=== PATIENT | male | born 1980 | race Caucasian/White ===

== ENCOUNTER 2018-06-16 19:40 | Emergency (ER) | payer OTHER ==
[2018-06-16] MEDS ORDERED: ONDANSETRON 4 MG/2 ML VIAL IVP STA (19:53)
[2018-06-16] MEDS ORDERED: LORazepam 2 MG/ML INJ IV STA (19:53)
[2018-06-16] MEDS ORDERED: SODIUM CHLORIDE 0.9% 2,000 ML IV STA (19:53)
[2018-06-16] MEDS ORDERED: diphenhydrAMINE 50 MG/ML 1 ML VIAL IVP STA (19:53)
[2018-06-16 19:55] VITALS: RESP 18
[2018-06-16] MEDS: cloNIDine HCL 0.1 MG TAB PO STA (20:12)
--- NOTE | 2018-06-16 20:25 | ED ---
Nausea/Vomiting/Diarrhea HPI - General Chief complaint: Recheck/Abnormal Lab/Rx Stated complaint: Withdrawal Time Seen by Provider: 06/16/18 19:45 Source: EMS, RN notes reviewed, old records reviewed Mode of arrival: EMS Limitations: physical limitation - History of Present Illness MD complaint: nausea, vomiting, abdominal pain, other (diaphoresis, tremors) -: hour(s) Associated Abdominal Pain: Yes Location: diffuse Radiation: none Severity: severe Severity scale (1-10): 9 Quality: constant Consistency: constant Worsens with: none Context: other (history of drug abuse and withdrawal) Associated Symptoms: myalgias, loss of appetite, nausea/vomiting, weakness - Related Data Home Medications Medication Instructions Recorded Confirmed Acetaminophen [Tylenol 8 Hour] 650 mg PO Q6H PRN 06/16/18 06/16/18 Buprenorphine HCl/Naloxone HCl 1 film SL DAILY 06/16/18 06/16/18 [Buprenorp-Nalox 4-1 mg Sl Film] Calcium 1000mg/ Magnesium 500mg 1 tab PO TID PRN 06/16/18 06/16/18 Divalproex [Depakote] 1,000 mg PO HS 06/16/18 06/16/18 Divalproex [Depakote] 500 mg PO DAILY@0600 06/16/18 06/16/18 Folic Acid 1 mg PO DAILY 06/16/18 06/16/18 Gabapentin [Neurontin] 300 mg PO TID 06/16/18 06/16/18 Hyoscyamine Sulfate [Levsin] 0.125 mg PO QID PRN 06/16/18 06/16/18 Ibuprofen [Motrin] 600 mg PO Q6HR PRN 06/16/18 06/16/18 LORazepam [Ativan] 1 - 2 mg PO Q4H PRN 06/16/18 06/16/18 Lactulose 20 gm PO DAILY 06/16/18 06/16/18 Loperamide [Imodium] 4 mg PO ONCE PRN 06/16/18 06/16/18 Ondansetron HCl [Zofran] 8 mg PO Q6H PRN 06/16/18 06/16/18 Ondansetron [Zofran] 4 mg IM Q6H PRN 06/16/18 06/16/18 PHENobarbital 97.2 mg PO DAILY 06/16/18 06/16/18 Thiamine [Vitamin B-1] 100 mg PO TID@0600,1530,2200 06/16/18 06/16/18 Trimethobenzamide HCl [Tigan] 300 mg PO Q6H PRN 06/16/18 06/16/18 cloNIDine HCL [Catapres] 0.1 mg PO Q4H PRN 06/16/18 06/16/18 levOCARNitine [Levocarnitine] 990 mg PO BID 06/16/18 06/16/18 traZODone HCL 50 - 150 mg PO HS 06/16/18 06/16/18 traZODone HCL 100 mg PO HS 06/16/18 06/16/18 Allergies Allergy/AdvReac Type Severity Reaction Status Date / Time No Known Allergies Allergy Verified 06/16/18 20:25 Review of Systems ROS Statement: Those systems with pertinent positive or pertinent negative responses have been documented in the HPI. ROS Other: All systems not noted in ROS Statement are negative. Past Medical History Past Medical History: Seizure Disorder History of Any Multi-Drug Resistant Organisms: None Reported Past Surgical History: Orthopedic Surgery Additional Past Surgical History / Comment(s): shoulders and back surgery Past Psychological History: Anxiety, Bipolar, PTSD Smoking Status: Current every day smoker Past Alcohol Use History: None Reported Past Drug Use History: Heroin, Opiates General Exam Limitations: physical limitation General appearance: alert, anxious, in distress Head exam: Present: atraumatic, normocephalic, normal inspection Eye exam: Present: normal appearance, PERRL, EOMI. Absent: scleral icterus, conjunctival injection, periorbital swelling ENT exam: Present: normal exam, mucous membranes moist Neck exam: Present: normal inspection. Absent: tenderness, meningismus, lymphadenopathy Respiratory exam: Present: normal lung sounds bilaterally. Absent: respiratory distress, wheezes, rales, rhonchi, stridor Cardiovascular Exam: Present: normal rhythm, tachycardia, normal heart sounds. Absent: systolic murmur, diastolic murmur, rubs, gallop, clicks GI/Abdominal exam: Present: soft, normal bowel sounds. Absent: distended, tenderness, guarding, rebound, rigid Extremities exam: Present: normal inspection, full ROM, normal capillary refill. Absent: tenderness, pedal edema, joint swelling, calf tenderness Back exam: Present: normal inspection Neurological exam: Present: alert, oriented X3, CN II-XII intact Psychiatric exam: Present: normal affect, normal mood Skin exam: Present: warm, dry, intact, normal color. Absent: rash Course Vital Signs 06/16/18 06/16/18 06/16/18 19:49 20:09 21:43 Temperature 97.6 F Pulse Rate 104 H 78 50 L Respiratory 18 18 18 Rate Blood Pressure 159/112 127/90 130/84 O2 Sat by Pulse 99 99 99 Oximetry - Reevaluation(s) Reevaluation #1: 06/16/18 21:46 Medical record is reviewed Reevaluation #2: 06/16/18 21:47 Patient does have resolution, improvement of symptoms Medical Decision Making - Medical Decision Making 37 male the ER for evaluation polysubstance withdrawal. Methadone withdrawal. Patient will continue Catapres patch Return to [place], - Lab Data Result diagrams: 06/16/18 20:20 06/16/18 20:20 Lab Results 06/16/18 06/16/18 06/16/18 Range/Units 20:02 20:20 20:20 WBC 7.0 (3.8-10.6) k/uL RBC 4.47 (4.30-5.90) m/uL Hgb 13.7 (13.0-17.5) gm/dL Hct 40.8 (39.0-53.0) % MCV 91.3 (80.0-100.0) fL MCH 30.7 (25.0-35.0) pg MCHC 33.6 (31.0-37.0) g/dL RDW 15.1 (11.5-15.5) % Plt Count 227 (150-450) k/uL Neutrophils % 50 % Lymphocytes % 36 % Monocytes % 9 % Eosinophils % 1 % Basophils % 1 % Neutrophils # 3.5 (1.3-7.7) k/uL Lymphocytes # 2.5 (1.0-4.8) k/uL Monocytes # 0.6 (0-1.0) k/uL Eosinophils # 0.1 (0-0.7) k/uL Basophils # 0.1 (0-0.2) k/uL Sodium 143 (137-145) mmol/L Potassium 4.8 (3.5-5.1) mmol/L Chloride 106 (98-107) mmol/L Carbon Dioxide 24 (22-30) mmol/L Anion Gap 13 mmol/L BUN 18 (9-20) mg/dL Creatinine 0.85 (0.66-1.25) mg/dL Est GFR (CKD-EPI)AfAm >90 (>60 ml/min/1.73 sqM) Est GFR (CKD-EPI)NonAf >90 (>60 ml/min/1.73 sqM) Glucose 76 (74-99) mg/dL Calcium 10.5 H (8.4-10.2) mg/dL Total Bilirubin 0.5 (0.2-1.3) mg/dL AST 29 (17-59) U/L ALT 35 (21-72) U/L Alkaline Phosphatase 70 (38-126) U/L Creatine Kinase 60 (55-170) U/L Total Protein 8.6 H (6.3-8.2) g/dL Albumin 4.9 (3.5-5.0) g/dL Lipase 327 H (23-300) U/L Urine Color Yellow Urine Appearance Clear (Clear) Urine pH 6.5 (5.0-8.0) Ur Specific [place] 1.040 H (1.001-1.035) Urine Protein 1+ H (Negative) Urine Glucose (UA) Negative (Negative) Urine Ketones 1+ H (Negative) Urine Blood Negative (Negative) Urine Nitrite Negative (Negative) Urine Bilirubin Negative (Negative) Urine Urobilinogen 2.0 (<2.0) mg/dL Ur Leukocyte Esterase Negative (Negative) Urine RBC 2 (0-5) /hpf Urine WBC 2 (0-5) /hpf Amorphous Sediment Rare H (None) /hpf Hyaline Casts 6 H (0-2) /lpf Urine Mucus Few H (None) /hpf Salicylates <1.0 mg/dL Urine Opiates Screen Not Detected (NotDetected) Ur Oxycodone Screen Not Detected (NotDetected) Urine Methadone Screen Detected H (NotDetected) Ur Propoxyphene Screen Not Detected (NotDetected) Acetaminophen <10.0 ug/mL Ur Barbiturates Screen Detected H (NotDetected) U Tricyclic Antidepress Not Detected (NotDetected) Ur Phencyclidine Scrn Not Detected (NotDetected) Ur Amphetamines Screen Not Detected (NotDetected) U Methamphetamines Scrn Not Detected (NotDetected) U Benzodiazepines Scrn Detected H (NotDetected) Urine Cocaine Screen Not Detected (NotDetected) U Marijuana (THC) Screen Not Detected (NotDetected) Serum Alcohol <10 mg/dL - EKG Data -: EKG Interpreted by Me (EKG shows sinus rhythm rate of 64, SD 156, QRS 94, QTC 418) Disposition Clinical Impression: Opiate withdrawal Disposition: HOME SELF-CARE Condition: Good Instructions (If sedation given, give patient instructions): Opioid Withdrawal (ED) Is patient prescribed a controlled substance at d/c from ED?: No Referrals: None,Stated [Primary Care Provider] - 1-2 days
[2018-06-16 20:27] LABS: Basophils # (A) 0.1 k/uL (0-0.2); Basophils % (A) 1 %; Eosinophils # (A) 0.1 k/uL (0-0.7); Eosinophils % (A) 1 %; HCT 40.8 % (39.0-53.0); HGB 13.7 gm/dL (13.0-17.5); Lymphocytes # (A) 2.5 k/uL (1.0-4.8); Lymphocytes % (A) 36 %; MCH 30.7 pg (25.0-35.0); MCHC 33.6 g/dL (31.0-37.0); MCV 91.3 fL (80.0-100.0); Mean Platelet Volume 8.1; Monocytes # (A) 0.6 k/uL (0-1.0); Monocytes % (A) 9 %; Neutrophils # (A) 3.5 k/uL (1.3-7.7); Neutrophils % (A) 50 %; Platelet Count 227 k/uL (150-450); RBC 4.47 m/uL (4.30-5.90); RDW 15.1 % (11.5-15.5)
[2018-06-16 20:37] LABS: ALT 35 U/L (21-72); AST 29 U/L (17-59); Acetaminophen <10.0 ug/mL; Albumin 4.9 g/dL (3.5-5.0); Alcohol <10 mg/dL; Alkaline Phosphatase 70 U/L (38-126); Anion Gap 13 mmol/L; Blood Urea Nitrogen 18 mg/dL (9-20); Calcium 10.5 mg/dL (8.4-10.2); Carbon Dioxide 24 mmol/L (22-30); Chloride 106 mmol/L (98-107); Creatine Kinase 60 U/L (55-170); Glucose 76 mg/dL (74-99); Lipase 327 U/L (23-300); Potassium 4.8 mmol/L (3.5-5.1); Salicylate <1.0 mg/dL; Sodium 143 mmol/L (137-145); Total Bilirubin 0.5 mg/dL (0.2-1.3); Total Protein 8.6 g/dL (6.3-8.2)
[2018-06-16 21:26] LABS: Amorphous Sediment,Urine Rare /hpf; Appearance,Urine Clear (Clear); Bilirubin,Urine Negative (Negative); Blood,Urine Negative (Negative); Color,Urine Yellow; Glucose,Urine (UA) Negative (Negative); Hyaline Casts,Urine 6 /lpf (0-2); Ketones,Urine 1+ (Negative); Leukocyte Esterase,Urine Negative (Negative); Mucus,Urine Few /hpf; Nitrite,Urine Negative (Negative); PH, Urine 6.5 (5.0-8.0); Protein,Urine 1+ (Negative); RBC,Urine 2 /hpf (0-5); WBC,Urine 2 /hpf (0-5)
[2018-06-16 21:35] LABS: Amphetamine Screen,Urine Not Detected (NotDetected); Barbiturate Screen,Urine Detected (NotDetected); Benzodiazepines Screen,Urine Detected (NotDetected); Cocaine Screen,Urine Not Detected (NotDetected); Methadone Screen, Urine Detected (NotDetected); Opiate Screen,Urine Not Detected (NotDetected); Oxycodone Screen, Urine Not Detected (NotDetected); Phencyclidine Screen,Urine Not Detected (NotDetected); Tricyclic Antidepressant,Urine Not Detected (NotDetected); Urn Cannabinoid Scrn Not Detected (NotDetected)
[2018-06-16 22:27] VITALS: BP 113/74; PULSE 52; TEMP 98.2
== END 2018-06-16 22:38 | disposition home or self-care (01) ==
LOC: EC 19:40
DX: F11.23 Opioid dependence with withdrawal (principal); R11.2 Nausea with vomiting, unspecified; R10.9 Unspecified abdominal pain; R53.1 Weakness; R61 Generalized hyperhidrosis; R25.1 Tremor, unspecified; G40.909 Epilepsy, unspecified, not intractable, without status epilepticus; F31.9 Bipolar disorder, unspecified; F41.9 Anxiety disorder, unspecified; F43.10 Post-traumatic stress disorder, unspecified; F17.200 Nicotine dependence, unspecified, uncomplicated; Z79.899 Other long term (current) drug therapy; Z53.8 Procedure and treatment not carried out for other reasons
CPT/HCPCS: 36415; 93005; 80053; 82550; 83690; 85025; 81001; 80306; 83520; 99285; 96374; 96375 ×2; 96361 ×2; G0480 ×2; J2060; J1200; J2405; 80320; 80329